=== PATIENT | female | born 1985 | race Caucasian/White ===

== ENCOUNTER 2018-04-16 21:38 | Emergency (ER) | payer MEDICAID ==
--- NOTE | 2018-04-16 22:57 | RADIOLOGY REPORT (SQ) ---
EXAM DESCRIPTION: XR CHEST 2 VIEWS CLINICAL HISTORY: 32 years Female, cough COMPARISON: None. FINDINGS: Adequate lung volume, clear parenchyma, normal cardiac silhouette, and intact bony thorax. IMPRESSION: No acute cardiopulmonary findings.
[2018-04-16 23:16] LABS: APPEARANCE,URINE SLIGHTLY-CLOUDY; BILIRUBIN,URINE NEGATIVE (NEGATIVE); COLOR,URINE YELLOW; GLUCOSE, URINE NEGATIVE (NEGATIVE); KETONES,URINE NEGATIVE (NEGATIVE); LEUKOCYTE ESTERASE,URINE NEGATIVE (NEGATIVE); NITRITE,URINE NEGATIVE (NEGATIVE); PROTEIN,URINE NEGATIVE (NEGATIVE); URINE SPECIFIC GRAVITY 1.017
[2018-04-16] MEDS ORDERED: IPRATROPIUM/ALBUTEROL 0.5-2.5 MG/3 ML AMPUL NEB ONE (23:24)
--- NOTE | 2018-04-16 23:26 | ER Document Report ---
ED General - General Mode of Arrival: Ambulatory Information source: Patient TRAVEL OUTSIDE OF THE [place] IN LAST 30 DAYS: No - General Chief Complaint: Productive Cough Stated Complaint: SHORTNESS OF BREATH Time Seen by Provider: 04/16/18 22:12 Notes: 32 y.o female with Graves disease presents to the ED with productive cough and trouble breathing of onset about one month ago. Pt reports taking Sudafed and then Mucinex with minimal relief. Pt states that her "lungs feeling on fire". Pt denies any fever. She denies any hx of asthma. Pt sees Dr. Kincaid for her Graves disease. (BE HERRERA) - Related Data Allergies/Adverse Reactions: Penicillins Allergy (Intermediate, Verified 01/22/14 11:52) hives, facial swelling sulfamethoxazole [From Julra] Allergy (Mild, Verified 01/22/14 11:52) unknown trimethoprim [From Julra] Allergy (Verified 01/22/14 11:52) Past Medical History - General Information source: Patient - Social History Smoking Status: Current Every Day Smoker Cigarette use (# per day): Yes - 1 pack/day Chew tobacco use (# tins/day): No Smoking Education Provided: Yes Family History: Reviewed & Not Pertinent Patient has suicidal ideation: No Patient has homicidal ideation: No Endocrine Medical History: Denies: Hx Diabetes Mellitus Type 1 Renal/ Medical History: Denies: Hx Ectopic , Hx Ovarian Cysts, Hx Peritoneal Dialysis - Immunizations Hx Diphtheria, Pertussis, Tetanus Vaccination: Yes Review of Systems - Review of Systems Constitutional: denies: Fever EENT: No symptoms reported Cardiovascular: No symptoms reported Respiratory: See HPI, Cough - productive, Short of breath - "trouble breathing" Gastrointestinal: No symptoms reported Genitourinary: No symptoms reported Female Genitourinary: No symptoms reported Musculoskeletal: No symptoms reported Skin: No symptoms reported Hematologic/Lymphatic: No symptoms reported Neurological/Psychological: No symptoms reported -: Yes All other systems reviewed and negative Physical Exam - Vital signs Vitals: Temp Pulse Resp BP Pulse Ox 98.0 F 92 20 123/73 98 04/16/18 21:51 04/16/18 21:51 04/16/18 21:51 04/16/18 21:51 04/16/18 21:51 - Notes Notes: Physical Exam: General: Alert, appears well. HEENT: Normocephalic. Atraumatic. PERRL. Extraocular movements intact. Oropharynx clear. Neck: Supple. Non-tender. Respiratory: Expiratory wheeze with forced expiration. Cardiovascular: Regular rate and rhythm. Abdominal: Normal Inspection. Non-tender. No distension. Normal Bowel Sounds. Back: Non-tender. No deformity or step off. Extremities: Moves all four extremities. Upper extremities: Normal inspection. Normal ROM. Lower extremities: Normal inspection. No edema. Normal ROM. Neurological: Normal cognition. AAOx3. Normal speech. Psychological: Normal affect. Normal Mood. Skin: Warm. Dry. Normal color. (BE HERRERA) Course - Re-evaluation Re-evalutation: 04/17/18 00:26 Pt now has increased aeration and more wheezing. Ordered another breathing treatment. (BE HERRERA) 04/17/18 01:04 Patient is much improved after DuoNeb and prednisone. She is encouraged to stop smoking as it is likely the cause of her cough and bronchospasm. Patient will be discharged home with a short course of prednisone and albuterol. Return if any worsening or concerning symptoms. No acute findings on chest x- ray and patient is not . Symptoms are not consistent with pulmonary embolus and patient has had complete resolution of symptoms with nebs. (ANTIONETTE LUJAN) - Vital Signs Vital signs: Temp Pulse Resp BP Pulse Ox 98.0 F 92 20 123/73 98 04/16/18 21:51 04/16/18 21:51 04/16/18 21:51 04/16/18 21:51 04/16/18 21:51 - Laboratory Laboratory results interpreted by me: 04/16/18 22:38 Urine Urobilinogen 4.0 H Discharge - Discharge Clinical Impression: Bronchitis with bronchospasm Condition: Stable Disposition: HOME, SELF-CARE Instructions: Bronchitis With Bronchospasm (Wheezing) ([facility]), Inhaled Bronchodilators ([facility]), Stop Smoking ([facility]) Additional Instructions: Please follow-up with your primary doctor this week. Prescriptions: Albuterol Sulfate [Proair HFA Inhalation Aerosol 8.5 gm MDI] 2 puff IH Q4H PRN # 1 mdi PRN Reason: Prednisone 40 mg PO DAILY #6 tablet Scribe Attestation: 04/17/18 01:05 I personally performed the services described in the documentation, reviewed and edited the documentation which was dictated to the scribe in my presence, and it accurately records my words and actions. (ANTIONETTE LUJAN) Scribe Documentation - Scribe Written by Scribe:: Beau Caputo 04/16/18 [id number] acting as scribe for :: Shannon
[2018-04-17] MEDS ORDERED: PREDNISONE 20 MG TABLET PO ONE (00:25)
[2018-04-17] MEDS ORDERED: IPRATROPIUM/ALBUTEROL 0.5-2.5 MG/3 ML AMPUL NEB ONE (00:25)
[2018-04-17] MEDS ORDERED: ALBUTEROL SULFATE HFA (90 MCG/PUFF) 8 GM MDI (1 MDI/ER DISP) IH ONE (00:53)
[2018-04-17 01:38] VITALS: BP 114/56
== END 2018-04-17 01:39 | disposition home or self-care (01) ==
LOC: ER 21:38
DX: J40 Bronchitis, not specified as acute or chronic (principal); R05 Cough; R06.02 Shortness of breath; F17.210 Nicotine dependence, cigarettes, uncomplicated; E05.00 Thyrotoxicosis with diffuse goiter without thyrotoxic crisis or storm; Z88.0 Allergy status to penicillin; Z88.1 Allergy status to other antibiotic agents
CPT/HCPCS: 94640 ×2; 99284; 81025; 81001; 71046; J7512; J3490; J7620 ×2